=== PATIENT | male | born 1990 | race Caucasian/White ===

== ENCOUNTER 2024-09-06 10:43 | Outpatient (AMB) | payer OTHER, SELFPAY ==
--- NOTE | 2024-09-06 10:53 | MHC.OFFVIS ---
Intake Visit Reasons: 2m/ Migraine Allergies No Known Allergies Allergy (Verified 09/04/24 09:00) HPI Comments Details: History of Present Illness The patient is a 34-year-old male presenting with chronic migraines occurring almost daily within the past month. These migraines are described as small but disruptive, affecting his ability to work effectively. The patient had been on Emgality (galcanezumab-gnlm) injections but reports no improvement despite three doses. His previous trials with topiramate, propranolol, and another unnamed medication for migraine prevention were also ineffective. There are considerations to try verapamil or Depakote, while balancing interactions with his ADHD medication, guanfacine. Anxiety related to job performance due to migraines is noted, and there is interest in exploring Botox injections for headache management. [facility] Medical History (Updated 09/06/24 @ 10:55 by Marilynn Cuevas MD) Migraine without aura Review of Systems Const Details: Neurological: Reports chronic migraines, significant disruption in activities. - Psychological: Reports anxiety related to job performance and health insuran ? Physical Exam Neuro Other: Mental Status: Alert and oriented to person, place, and time. Normal attention. Normal spontaneous speech, fluency, and comprehension. No obvious issues with mood and memory. Affect is appropriate. Cranial Nerves: CN II: Visual chowdary full to confrontation, visual acuity intact. CN III, IV, : Pupils equal, round, reactive to light and accommodation. Extraocular movements are normal. CN V: Facial sensation is normal. CN VII: Facial movements symmetrical. CN VIII: Hearing intact to bedside conversation is normal. CN IX, X: Palate elevates symmetrically. CN XI: Shoulder shrug and head turn symmetrical. CN XII: Tongue midline without atrophy or fasciculations. Extrapyramidal: Full facial expressions and blinking. No rigidity. Movements are appropriate with no tremor or abnormality. Speech: Normal; no dysarthria or tremor. Assessment & Plan Assessment & Plan (1) Migraine without aura, intractable, without status migrainosus: Comment: Meds tried for migraine: Tylenol, Advil, Excedrin, Sumatriptan, Topiramate, Propranalol, Amitryptiline. Code(s): G43.019 - Migraine without aura, intractable, without status migrainosus Category: Medical Plan We discussed shifting the patient's migraine management focus to Botox injections, given the ineffectiveness of Emgality and past medications. In the interim, Depakote will be started to determine its efficacy in migraine prevention. Addressing concurrent anxiety is critical, and the patient is advised to discuss suitable anxiety management with his psychiatrist. The patient is aware of the potential interaction between his ADHD medication guanfacine and Depakote. Follow-up in one month is planned to evaluate the current plan's success and consider Botox, pending insurance approval. I explained to the patient that the current plan involves transitioning to Depakote due to the ineffectiveness of Emgality and previous medications. I emphasized that managing anxiety is crucial for improving headaches and advised a discussion with his psychiatrist for anxiety treatment. We reviewed the possibility of introducing Botox for headache management, pending insurance approval. I assured the patient that Botox could be an effective preventive measure and educated him on the required prior authorization process. I informed him of the 50% success rate among patients similar to him, particularly those with overlapping anxiety and stress factors. We agreed to reconvene in one month to assess the effectiveness of the new regimen and decide on further steps. - Start Depakote 250 mg at night as directed. - Follow up with your psychiatrist about managing anxiety, discussing its impact on migraines. - Monitor the effects of Depakote on your migraines and any side effects. - Keep a headache diary to track frequency, severity, and potential triggers. - Follow up in one month for evaluation and possible Botox initiation, pending insurance approval. Medications: New divalproex 250 mg PO ONCE 30 tabs 0RF Coding Level of Care Code Tele Est Pt Level 5 (12227) Diagnoses Migraine without aura, intractable, without status migrainosus G43.019
== END 2024-09-06 11:17 | disposition home or self-care (01) ==
LOC: HO.HSM 10:44
PROVIDERS: PCP Family Medicine; Visit Provider Psychiatry & Neurology Neurology
DX: G43.019 Migraine without aura, intractable, without status migrainosus (principal)
CPT/HCPCS: 99214

== ENCOUNTER 2024-10-11 09:31 | Outpatient (AMB) | payer OTHER, SELFPAY ==
--- NOTE | 2024-10-11 09:37 | A.OFFVIS_ITS ---
Intake Visit Reasons: 1 m for migraine Allergies No Known Allergies Allergy (Verified 09/04/24 09:00) Medication List - Last Reconciled 10/11/24 by Marilynn Cuevas MD dextroamphetamine-amphetamine 10 mg 1 tab PO DAILY divalproex 250 mg PO ONCE guanfacine ER 2 mg PO DAILY onabotulinumtoxinA (Botox) 200 units intramuscularly Every 3 months; 90 days HPI Comments Details: The patient is a 34-year-old male presenting with chronic migraines occurring almost daily within the past month. These migraines are described as small but disruptive, affecting his ability to work effectively. The patient had been on Emgality (galcanezumab-gnlm) injections and had previously reported no improvement despite three doses. His previous trials with topiramate, propranolol, and another unnamed medication for migraine prevention were also ineffective. There are considerations to try verapamil or Depakote, while balancing interactions with his ADHD medication, guanfacine. Anxiety related to job performance due to migraines is noted, and there is interest in exploring Botox injections for headache management. He is presenting with migraines and headache disorders. His migraines, previously occurring 6 to 7 times per week, improved in frequency and severity, reducing to 4 to 5 milder episodes weekly after receiving the third dose of Emgality. Post-vacation, there has been a slight regression in the control of migraines. During vacation, improvement was noted, however, upon return, productivity impacting headaches have persisted. He chose to delay initiation of new prescribed medication, maintaining the existing regimen to monitor the effect of Emgality. He has discussed potential adjustments including the use of Depakote in varying doses as a therapeutic intervention, to seek further migraine frequency reduction without overlapping treatments causing unclear efficacy assessments. His work, which involves substantial screen time, exacerbates headache symptoms and affects overall productivity. Management strategies to alleviate symptoms involve adjusting medications, specifically transitioning stimulant med from Adderall to a reduced dose of Ritalin. Discussions around the possibility of incorporating Botox treatments in the future exist, contingent upon evaluating the response to current treatment strategies. [facility] Medical History (Updated 09/06/24 @ 10:55 by Marilynn Cuevas MD) Migraine without aura Review of Systems Const Details: - Neurological: Reports migraines and headaches; Denies aura - Psychiatric: Denies notable mood disorders Physical Exam Neuro Other: Mental Status: Alert and oriented to person, place, and time. Normal attention. Normal spontaneous speech, fluency, and comprehension. No obvious issues with mood and memory. Affect is appropriate. Cranial Nerves: CN II: Visual chowdary full to confrontation, visual acuity intact. CN III, IV, : Pupils equal, round, reactive to light and accommodation. Extraocular movements are normal. CN V: Facial sensation is normal. CN VII: Facial movements symmetrical. CN VIII: Hearing intact to bedside conversation is normal. CN IX, X: Palate elevates symmetrically. CN XI: Shoulder shrug and head turn symmetrical. CN XII: Tongue midline without atrophy or fasciculations. Extrapyramidal: Full facial expressions and blinking. No rigidity. Movements are appropriate with no tremor or abnormality. Speech: Normal; no dysarthria or tremor. Assessment & Plan Assessment & Plan (1) Migraine without aura, intractable, without status migrainosus: Comment: Meds tried for migraine: Tylenol, Advil, Excedrin, Sumatriptan, Topiramate, Propranalol, Amitryptiline. Code(s): G43.019 - Migraine without aura, intractable, without status migrainosus Category: Medical Plan Impression: Chornic intractable migraine w/o aura with stress/anxiety Rec: a: May try Emgality again, as he started to feel some positive effect b: Add Depakote 125mg or half of 250mg one at bedtime if that would not work c: Botox is approved but he is waiting to see if present approach could work Medications: New galcanezumab-gnlm (Emgality Pen) 120 mg subcut QMONTH 1 mL 5RF Coding Level of Care Code Est Pt Level 4 (70382) Diagnoses Migraine without aura, intractable, without status migrainosus G43.019
--- OUTSIDE RECORDS SUMMARY | 2024-10-11 10:42 | XMS_ITS | Clinical Summary ---
Author Organization [facility] Address [address] [place] [phone] Phone Care Team Providers Care Group Home Worker Name Role Phone Tiara Glynn DO Primary Care Provider Social History Tobacco Use Types Packs/Day Years Used Date Smoking Tobacco: Never Assessed Sex and Gender Information Value Date Recorded Sex Assigned at Not on file Legal Sex Male 5:23 PM EST Gender Identity Not on file Sexual Orientation Not on file Plan of Treatment Not on file Medical Devices Not on file Insurance [facility] QUALITY LIMITED [facility] HMO [facility] NET PARTIAL [facility] QU[facility] LIMITED [facility] HMO [employer] [facility] NET PARTIAL [facility]ALITY LIMITED [facility] NET PARTIAL [facility]AL[facility] HMO [facility] PARTIAL [facility] QUALITY LIMITED [facility] HMO HEALTH SAFETY NET PARTIAL Member Subscriber Plan / Payer (Ef fective 2022-Present) Name:Romeo Hemphillko Relation to Subscriber:Self Name:Bryan Hemphill Payer ID:Not on file Group ID:Not on file Type:Medicaid Address: [place] [id number] [facility] QUALITY LIMITED [employer] HEALTH SAFETY NET PARTIAL Care Teams Group Home Worker Relationship Specialty Start Date End Date Tiara Glynn DO [address] [place] [id number] PCP - General 10/19/22 Additional Source Comments The information contained in this document represents components of the legal health record. It is not the complete legal health record.[facility]
== END 2024-10-11 09:51 | disposition home or self-care (01) ==
LOC: HO.HSM 09:31
PROVIDERS: PCP Family Medicine; Visit Provider Psychiatry & Neurology Neurology
DX: G43.019 Migraine without aura, intractable, without status migrainosus (principal)
CPT/HCPCS: 99214

== ENCOUNTER 2024-11-29 13:21 | Outpatient (AMB) | payer OTHER, SELFPAY ==
--- NOTE | 2024-11-29 13:27 | MHC.OFFVIS ---
Intake Visit Reasons: 6 weeks migraine Allergies No Known Allergies Allergy (Verified 09/04/24 09:00) HPI Comments Details: 34 years old man with chronic intractable migraine without aura type of headaches and stress/anxiety. He is presenting with chronic migraine. He experiences nearly daily mild migraines, impacting his work efficiency. Despite multiple therapeutic trials, the episodes persist. Started with the administration of Emigality five months ago, the patient reports only slight potential relief in terms of migraine duration and intensity but continues to encounter near-daily symptoms. An attempt with Depakote was discontinued due to negative gastrointestinal effects. The patient identifies work stress as a contributing factor to his migraine episodes, and although his employment does not overly tax his cognitive resources, it involves managing the frequent migraine occurrences. Previously emphasized preventive treatments have been unsatisfactory, aligning him towards pursuing approved Botox treatment given the lack of significant improvement with other medications. [facility] Medical History (Updated 11/29/24 @ 13:33 by Marilynn Cuevas MD) Migraine without aura Review of Systems Const Details: - Neurological: Reports near-daily mild migraines; Denies significant aggravation by current preventive treatments. - Gastrointestinal: Reports adverse gastrointestinal effects with Depakote. - Psychiatric: Reports stress and anxiety contributing to migraine episodes. Physical Exam Neuro Other: Mental Status: Alert and oriented to person, place, and time. Normal attention. Normal spontaneous speech, fluency, and comprehension. No obvious issues with mood and memory. Affect is appropriate. Cranial Nerves: CN II: Visual chowdary full to confrontation, visual acuity intact. CN III, IV, : Pupils equal, round, reactive to light and accommodation. Extraocular movements are normal. CN V: Facial sensation is normal. CN VII: Facial movements symmetrical. CN VIII: Hearing intact to bedside conversation is normal. CN IX, X: Palate elevates symmetrically. CN XI: Shoulder shrug and head turn symmetrical. CN XII: Tongue midline without atrophy or fasciculations. Extrapyramidal: Full facial expressions and blinking. No rigidity. Movements are appropriate with no tremor or abnormality. Speech: Normal; no dysarthria or tremor. Assessment & Plan Assessment & Plan (1) Migraine without aura, intractable, without status migrainosus: Comment: Meds tried for migraine: Tylenol, Advil, Excedrin, Sumatriptan, Topiramate, Propranolol, Amitriptyline, Depakote, Emgality Code(s): G43.019 - Migraine without aura, intractable, without status migrainosus Category: Medical Plan Impression: Chronic intractable migraine with aura type of headaches not responsive to multiple preventive medicines including CGRP inhibitor. We have discussed Botox treatment, which might be especially useful for him because of his tendency for or risk for stress. We would tried to do that in next few days. Potential benefits of Botox and risks were discussed. Benefits included improvement in headache especially neck pain and head pain. As far as risk of Botox in migraine management is concerned, it is mainly some local bruise or rare risk of infection. Any muscle weakness from Botox is transient and usually goes away and 2-3 months Coding Level of Care Code Est Pt Level 4 (90834) Diagnoses Migraine without aura, intractable, without status migrainosus G43.019
== END 2024-11-29 14:19 | disposition home or self-care (01) ==
LOC: HO.HSM 13:21
PROVIDERS: PCP Family Medicine; Visit Provider Psychiatry & Neurology Neurology
DX: G43.019 Migraine without aura, intractable, without status migrainosus (principal)
CPT/HCPCS: 99214

== ENCOUNTER 2025-01-02 08:16 | Outpatient (AMB) | payer OTHER, SELFPAY ==
--- NOTE | 2025-01-02 08:17 | A.OFFVIS_ITS ---
Vital Signs 01/02/25 08:21 Weight 150 lb BP 118/76 Blood Pressure Location Lt brachial Position Sitting Respiration 16 Pulse 64 Pulse Source Pulse Oximeter Pulse Oximetry (%) 100 Oxygen Delivery Method Room Air Intake Visit Reasons: Botox inj Fish And Wildlife Technician Required: No Allergies No Known Allergies Allergy (Verified 01/02/25 08:22) HPI Comments Details: Bryan is a 34-year-old male patient who is following in the clinic for chronic migraine. He has been seeing Dr. Cuevas for migraines without aura that has been present for many years even in childhood however most severe over the last 6 years or so. He has had near daily migraines impacting his ability to work and other ADLs. He has tried several modes of therapy for his migraines without success. He is here today for his 1st round of Botox therapy. Prior medication trials include: Tylenol Advil Excedrin Sumatriptan Topiramate Propranolol Amitriptyline Depakote Emgality [facility] Medical History (Updated 01/02/25 @ 09:00 by Lynne Phillips CNP) Migraine without aura Review of Systems Const All systems reviewed & are unremarkable except as noted in HPI and below Physical Exam Vital Signs: Last Vital Signs Pulse 64 01/02/25 08:21 Resp 16 01/02/25 08:21 BP 118/76 01/02/25 08:21 Pulse Ox 100 01/02/25 08:21 Oxygen Delivery Method Room Air 01/02/25 08:21 Const General: cooperative, healthy appearing, comfortable and no acute distress Nutritional Appearance: well nourished Orientation/consciousness: patient oriented x3 Limitations: no limitations HEENT Head: Yes normal to inspection and Yes normocephalic Eyes General: appearance normal, both eyes and all related structures Visual Chowdary: normal visual chowdary by confrontation Alignment and Position: alignment normal Periorbital: periorbital findings normal Eyelids: Yes eyelids normal Conjunctivae: conjunctivae normal Sclerae: sclerae normal Neck Neck: Yes normal visual inspection and Yes full ROM General: Yes no CVA tenderness Back/Spine/Pelvis Back: no CVA tenderness Cervical Spine: normal cervical lordosis Thoracic/Lumbar Spine: thoracic and lumbar spine normal to inspection Neuro General: patient oriented x3 Cranial nerves: Yes CN's II-XII intact bilaterally and Yes Facial sensation intact/muscles of mastication intact Cognition (Neuro): normal cognition Gait exam (Neuro): Normal gait present Motor exam (neuro): no tremor noted Sensory Exam: double simultaneous stimulation for sensation normal Romberg Test: Negative Pupils: Normal pupillary reactivity/response: bilateral Psych Appearance: grossly normal Mental Status: mental status grossly normal Speech and movement: Normal speech and movement present and Clear speech present Affect: normal affect Attitude: cooperative Thought process: Normal thought process present Thought content: Normal thought content present Insight: Good insight present (Psych) Judgement: Good judgement present (Psych) Office Procedures Botulinum toxin Injection Details: Procedure: Botox therapy for Chronic Migraine Laterally: Bilateral Indications: Chronic Migraine Medications: Botox 155units How the med was supplied: Buy and Bill Timeout performed before procedure, patient identified with full name and date of . Risks and benefits of procedure reviewed, as well as site verified, sonsent signed, allergies reviewed, and medication reconsilliatino reviewed/completed. Following universal hygiene protocol and PREEMPT protocol, Botox 200unit vial was reconstituted with 4cc normal saline for a final concentration of 5units/0.1cc. The areas of injection were cleansed with alcohol. A 30g 0.5 needle was used to administer the injections as below. Procerus: 5units midline Portrait Photographer: 5units left and 5units right Frontalis: 10units left and 10units right Temporalis: 20units left and 20units right Occipitalis:15units left and 15units right Cervical paraspinal 10units left and 10units right Trapezius 15units left and 15units right No noted paresthesias during injection 155units of Botox used and 45units wasted per PREEMPT protocol Complications: None Patient was observed for 15 minutes after the procedure and discharged home with instructions to apply ice to their head as needed. 58443 - Migraine Procedure code (CPT) selection complete Office Meds onabotulinumtoxinA 200 unit solution for injection Performing Provider: Lynne Phillips CNP Performing Location: [facility] [place] [facility] Administered by: Lynne Phillips CNP on 01/02/25 09:00 Dose Route Admin Location Dispensed Lot Number Expiration Date [facility] Guillotine Operator 155 unit IM 200 units [id number] 05/22/27 6358-5113-25 [employer]ER[employer] AN/BOTOX Total Dispensed Waste 200 units 22.5 % Assessment & Plan Assessment & Plan (1) Chronic migraine without aura without status migrainosus, not intractable: Code(s): G43.709 - Chronic migraine without aura, not intractable, without status migrainosus Category: Medical Plan Bryan is a 34-year-old male patient who is following in the clinic for chronic migraine. He has been seeing Dr. Cuevas for migraines without aura that has been present for many years even in childhood however most severe over the last 6 years or so. He is here today for his 1st round of Botox therapy. He tolerated the procedure well without any complications. He was discharged home at baseline. Plan will be to follow up in 12 weeks or sooner if needed. Pending his response, could consider dual therapy in the future. I do not see that he has any preventive medications. We can also address this at next visit. -return to the clinic in 12 weeks for repeat Botox therapy -at next visit, discuss acute therapy Orders: Orders AMB Botulinum toxin Injection Today G43.709 - Chronic migraine without aura, not intractable, without status migrainosus Coding Level of Care Code Est Pt Level 1 (44603) Diagnoses Chronic migraine without aura without status migrainosus, not intractable G43.709 CPT Codes Botox Injection - Botox 3: 13290 - Migraine ([id number])
[2025-01-02 08:21] VITALS: BP 118/76; PULSE 64; RESP 16; O2SAT 100
--- OUTSIDE RECORDS SUMMARY | 2025-01-02 08:22 | XMS_ITS | Clinical Summary ---
Author Organization [facility] Address [address] [address] Phone Care Team Providers Care Pediatric Physical Therapist Name Role Phone Tiara Glynn DO Primary Care Provider [phone] Social History Tobacco Use Types Packs/Day Years Used Date Smoking Tobacco: Never Assessed Sex and Gender Information Value Date Recorded Sex Assigned at Not on file Legal Sex Male 5:23 PM EST Gender Identity Not on file Sexual Orientation Not on file Plan of Treatment Not on file Medical Devices Not on file Insurance [facility] QUALITY LIMITED [facility] HMO [facility] NET PARTIAL [facility] HMO [employer] [facility] PARTIAL [facility] PARTIAL [facility]AL[facility] HMO [facility] PARTIAL [facility] QUALITY LIMITED [facility] HMO HEALTH SAFETY NET PARTIAL Member Subscriber Plan / Payer (Ef fective 2022-Present) Name:Romeo Hemphillko Relation to Subscriber:Self Name:Bryan Hemphill Payer ID:Not on file Group ID:Not on file Type:Medicaid Address: [place] [id number] [facility] QUALITY LIMITED [employer] HEALTH SAF[employer]Y NET PARTIAL Care Teams Pediatric Physical Therapist Relationship Specialty Start Date End Date Tiara Glynn DO [address] [place] [id number] PCP - General 10/19/22 Additional Source Comments The information contained in this document represents components of the legal health record. It is not the complete legal health record.[facility]
== END 2025-01-02 09:02 | disposition home or self-care (01) ==
LOC: HO.HSM 08:17
PROVIDERS: PCP Family Medicine; Visit Provider Nurse Practitioner
DX: G43.709 Chronic migraine without aura, not intractable, without status migrainosus (principal)
CPT/HCPCS: 64615; 99499

== ENCOUNTER → 2025-01-02 08:16 | Outpatient (BNVA) | payer OTHER, SELFPAY | PROVIDERS: PCP Family Medicine; Visit Provider Nurse Practitioner | DX: G43.709 Chronic migraine without aura, not intractable, without status migrainosus (principal) | CPT/HCPCS: 64615; J0585 ==